=== PATIENT | female | born 1955 | race Caucasian/White ===

== ENCOUNTER 2021-09-10 19:29 | Emergency (ER) | payer OTHER, BC ==
[2021-09-10 19:50] VITALS: TEMP 97.5; BMI 29.7
[2021-09-10] MEDS ORDERED: BEBTELOVIMAB (EUA) 175 MG/2 ML VIAL IVPUSH ONE (20:31)
[2021-09-10 22:45] VITALS: BP 124/78; PULSE 65
== END 2021-09-10 22:46 | disposition home or self-care (01) ==
LOC: JER 19:29
DX: U07.1 COVID-19 (principal)
CPT/HCPCS: 99284-25; M0222; Q0222